=== PATIENT | female | born 1945 | race Caucasian/White ===

== ENCOUNTER → 2020-05-01 10:33 | Outpatient (CLI) | payer MEDICARE, BC, SELFPAY ==
[2020-05-01 12:50] LABS: Coronavirus 19 IgG Antibody Positive (Negative); Coronavirus 19 IgM Antibody Negative (Negative)
== END ==
PROVIDERS: Visit Provider Internal Medicine Gastroenterology
DX: Z01.818 Encounter for other preprocedural examination (principal); Z20.822 Contact with and (suspected) exposure to COVID-19; Z13.810 Encounter for screening for upper gastrointestinal disorder
CPT/HCPCS: 36415; 86328

== ENCOUNTER 2020-05-03 06:59 | Day surgery (SDC) | payer MEDICARE, BC, SELFPAY ==
[2020-05-03 07:57] VITALS: BP 132/83; PULSE 59; RESP 18; TEMP 36.3; O2SAT 97
[2020-05-03 08:14] LABS: POC Glucose,Bedside 84 (70-110)
[2020-05-03 08:35] VITALS: O2SAT 97
--- NOTE | 2020-05-03 08:50 | HMH.PROC ---
[facility] Procedure Note Procedure Note:: Upper Endoscopy Procedure Report: Esophagogastroduodenoscopy with cold biopsies and TTS balloon dilation Endoscopost: Jacinto Mcallister II, MD Referring Physician: Shanell Smith DO Date of Procedure: May 03, 2020 Equipment: Olympus GIF 190 standard upper endoscope Sedation: MAC sedation Indications: Mrs. Emerson is a 74-year-old female with chronic recurrent dysphagia. The patient has had reflux esophagitis. Her EGD in June 2015 showed grade C reflux esophagitis with distal peptic stricture. The patient's EGD in February 2016 showed healing of the reflux esophagitis but stricturing and this was dilated to 18 mm. The patient has had recurrent dysphagia to primarily breads and meats (solids). She has had some heartburn and reflux which she controls with Rolaids. She had been on omeprazole. She reports no epigastric discomfort, indigestion, bloating or belching. She has a prior history of food impactions. She did have a prior Reema fundoplication by Dr. Liang Gutierrez in July 2013. The patient also has had robotic assisted sigmoid colectomy and hysterectomy for complicated diverticulitis. Procedure: Prior to the procedure, a history and physical exam was performed, and patient's medications and allergies were reviewed. The risks, benefits and alternatives of the sedation and procedure were discussed with the patient. All questions were answered and informed consent was obtained. The patient was brought to the procedure room. Patient identification and proposed procedure were verified by the physician and the nurse. The patient was placed in a left lateral decubitus position and the scope was passed under direct vision. Throughout the procedure, the patient's blood pressure, pulse, and oxygen saturations were monitored continuously. The upper GI endoscopy was accomplished without difficulty. The patient tolerated the procedure well. Findings: The scope was passed directly into the upper esophagus and advanced to the third portion of the duodenum. The post bulbar duodenum and duodenal bulb were normal with normal mucosa and conniventes. The scope was withdrawn through a normal duodenal bulb and pylorus into the stomach. There was bile reflux with linear reactive gastropathy of the antrum and body. The remainder of the antrum, body and fundus of the stomach were grossly normal. Upon retroflexion there was a recurrent 2 to 3 cm hiatal hernia with evidence of prior fundoplication. 2 biopsies were taken in the antrum and along the lesser curvature for histology to rule out gastritis and/or H pylori. The scope was then withdrawn into the esophagus. There was evidence of grade C?D (LA classification) reflux esophagitis with distal esophageal peptic stricture. There was also some chronic fibrosis (scarring) with distal pseudodiverticulum. Biopsies were obtained from the GE junction to rule out short segment King's esophagus. The distal esophagus was dilated gently up to 18 mm with a TTS hydrostatic balloon. The remainder of the esophageal mucosa was normal. Impression: 1. Grade C?D reflux esophagitis (LA classification) with distal esophageal peptic stricture (dilated to 18 mm) and some chronic GERD changes with small recurrent 2 to 3 cm hiatal hernia 2. Bile reflux with mild linear reactive gastropathy Plan: The patient does have complicated GERD and should remain on PPI therapy (omeprazole) long-term. We will discuss additional treatment options. I will follow-up the biopsies.
[2020-05-03 08:53] VITALS: BP 117/49; PULSE 63; RESP 12; TEMP 36.4; O2SAT 99
[2020-05-03 09:03] VITALS: BP 140/98; PULSE 71; RESP 16; O2SAT 96
[2020-05-03 09:13] VITALS: BP 140/73; PULSE 69; RESP 16; O2SAT 98
[2020-05-03 09:23] VITALS: BP 143/76; PULSE 62; RESP 16; TEMP 36.4; O2SAT 98
--- NOTE | 2020-05-03 15:14 | P.PN_ITS ---
[facility] Anesthesia Checklist - Patient Identification Patient Identification: Arm Band - Structural Data Admitted From: Home Planned Operative Procedure/s: EGD Consent for Planned Operative Procedure(s) Verified: Yes - Airway Assessment C-Spine Mobility Assessed: Yes TMJ Mobility Assessed: Yes Dentition: Dentures-good fit - Neurological Assessment Level of Consciousness: Awake Hx Seizures: No Numbness or tingling in extremities: No - Anesthesia Plan Anesthesia Risk discussed: Yes Anesthesia Plan: Verified ASA Class: II Anesthesia Type: MAC [facility] History I have reviewed the patient's past medical history: Yes Medical History: Reports:: Diabetes Mellitus Type 2 Denies:: Cancer, Diabetes Mellitus Type 1, MRSA, Seizures *Have you ever received a pneumonia vaccine?: Yes *Have you received a flu vaccine this season?: Yes Anesthesia experience/problems:: PONV Laterality Cases: Left: Total Knee Replacement Amputation: No Fractures: No - *Social History Last grade of school completed: High school graduate Alcohol Intake: never Substance Use Type: denies use *Occupational Status:: other *Travel in the last 8 weeks: None Family Hx:: Unable to obtain
== END 2020-05-03 09:28 | disposition home or self-care (01) ==
LOC: OUTP 07:03
PROVIDERS: PCP Family Medicine; Visit Provider Internal Medicine Gastroenterology
PROC: 0DJ08ZZ Inspection of Upper Intestinal Tract, Via Natural or Artificial Opening Endoscopic (ICD-10-PCS; CPT 43235; principal; 2020-05-03 08:30)
DX: K44.9 Diaphragmatic hernia without obstruction or gangrene (principal); K21.9 Gastro-esophageal reflux disease without esophagitis; K22.2 Esophageal obstruction; K31.9 Disease of stomach and duodenum, unspecified; Z87.19 Personal history of other diseases of the digestive system; E11.9 Type 2 diabetes mellitus without complications; Z96.652 Presence of left artificial knee joint; Z88.5 Allergy status to narcotic agent; Z79.899 Other long term (current) drug therapy
CPT/HCPCS: 43239; 43249; 82962; 88305; C1726

== ENCOUNTER → 2020-06-30 08:28 | Outpatient (CLI) | payer MEDICARE, BC, SELFPAY | PROVIDERS: Visit Provider Internal Medicine Gastroenterology | DX: Z01.812 Encounter for preprocedural laboratory examination (principal); Z20.822 Contact with and (suspected) exposure to COVID-19; Z13.810 Encounter for screening for upper gastrointestinal disorder; R13.10 Dysphagia, unspecified | CPT/HCPCS: U0003 ==

== ENCOUNTER 2020-07-02 09:47 | Day surgery (SDC) | payer MEDICARE, BC, SELFPAY ==
[2020-06-29 10:00] VITALS: BMI 22.9
[2020-07-02 10:04] VITALS: BP 121/47; PULSE 62; RESP 18; TEMP 36.6; O2SAT 92
--- NOTE | 2020-07-02 11:40 | P.PCN_ITS ---
[facility] Procedure Note Procedure Note:: Upper Endoscopy Procedure Report: Esophagogastroduodenoscopy with TTS balloon dilation Endoscopost: Jacinto Mcallister II, MD Referring Physician: Shanell Canales DO Date of Procedure: July 02, 2020 Equipment: Olympus GIF 190 standard upper endoscope Sedation: MAC sedation Indications: Mrs. Emerson is a 74-year-old female with recurrent chronic dysphagia. In the past she has had marked reflux esophagitis with peptic stricture. The patient did have a prior Reema fundoplication (Dr. Liang Gutierrez) in July 2013. She does have a history of complicated diverticulitis requiring robotic hand- assisted sigmoid colectomy and hysterectomy. The patient did have an EGD with dilation by me on May 03, 2020. I did dilate the esophagus up to 18 mm. There was grade C?D reflux esophagitis. I did recommend that she return on PPI therapy. The patient is better but still has dysphagia to solid foods (especially breads and meats). Procedure: Prior to the procedure, a history and physical exam was performed, and patient's medications and allergies were reviewed. The risks, benefits and alternatives of the sedation and procedure were discussed with the patient. All questions were answered and informed consent was obtained. The patient was brought to the procedure room. Patient identification and proposed procedure were verified by the physician and the nurse. The patient was placed in a left lateral decubitus position and the scope was passed under direct vision. Throughout the procedure, the patient's blood pressure, pulse, and oxygen saturations were monitored continuously. The upper GI endoscopy was accomplished without difficulty. The patient tolerated the procedure well. Findings: The scope was passed directly into the upper esophagus and advanced to the third portion of the duodenum. The post bulbar duodenum and duodenal bulb were normal with normal mucosa and conniventes. The scope was withdrawn through a normal duodenal bulb and pylorus into the stomach. There was bile reflux with mild linear reactive gastropathy of the antrum and body of the stomach. The remainder of the fundus of the stomach were grossly normal. Upon retroflexion there was a recurrent 2 to 3 cm hiatal hernia with evidence of prior Reema fundoplication. The scope was then withdrawn into the esophagus. There was no evidence of reflux esophagitis. There was fibrosis distally with stricturing. This was dilated from 18 to 20 mm with a TTS hydrostatic balloon. There was shattering of the stricture/stenosis that appeared to be fibrotic. There were fibrotic changes in the lower esophagus but there was no evidence of King's or reflux esophagitis. The remainder of the mid and proximal esophagus and esophageal mucosa was normal. Impression: 1. Distal esophageal fibrotic stricture status post dilation to 20 mm 2. Nonerosive GERD with distal fibrosis but no King's or reflux esophagitis 3. Small recurrent 2 to 3 cm hiatal hernia 4. Mild reactive gastropathy of antrum/body with bile reflux Plan: The patient should have clinical improvement with the dilation. I would continue PPI therapy on a long-term daily maintenance basis for complicated GERD.
[2020-07-02 11:43] VITALS: BP 110/61; PULSE 62; RESP 18; TEMP 36.1; O2SAT 97
[2020-07-02 11:53] VITALS: BP 104/54; PULSE 65; RESP 18; O2SAT 97
[2020-07-02 12:03] VITALS: BP 128/85; PULSE 62; RESP 18; O2SAT 97
[2020-07-02 12:13] VITALS: BP 122/81; PULSE 58; RESP 18; O2SAT 97
[2020-07-02 12:30] VITALS: BP 118/67; PULSE 59; RESP 18; TEMP 36.7; O2SAT 97
--- NOTE | 2020-07-02 17:38 | HMH.ANESCL ---
[facility] Anesthesia Checklist - Patient Identification Patient Identification: Arm Band - Structural Data Admitted From: Home Planned Operative Procedure/s: EGD Consent for Planned Operative Procedure(s) Verified: Yes Verified Documents: Surgical Consent, History and Physical - NPO Status Verified Time NPO: 00:00 - Airway Assessment C-Spine Mobility Assessed: Yes TMJ Mobility Assessed: Yes Dentition: Good Dentition - Neurological Assessment Level of Consciousness: Awake, Alert - Anesthesia Plan Anesthesia Risk discussed: Yes Anesthesia Plan: Verified ASA Class: III Anesthesia Type: MAC [facility] History Medical History: Reports:: Diabetes Mellitus Type 2 Denies:: Cancer, Diabetes Mellitus Type 1, Internal Pacemaker, MRSA, Seizures *Have you ever received a pneumonia vaccine?: Yes *Have you received a flu vaccine this season?: Yes Anesthesia experience/problems:: None Laterality Cases: Left: Total Knee Replacement Other Surgeries: No: Pacemaker Amputation: No Fractures: No - *Social History Last grade of school completed: GED Smoking Status: Unknown if ever smoked Alcohol Intake: never Substance Use Type: denies use *Occupational Status:: retired Housing: house *Travel in the last 8 weeks: None Family Hx:: No significant family history
[2020-07-03 11:34] LABS: POC Glucose,Bedside 80 (70-110)
== END 2020-07-02 12:30 | disposition home or self-care (01) ==
LOC: OUTP 09:48
PROVIDERS: PCP Family Medicine; Visit Provider Internal Medicine Gastroenterology
PROC: 0DJ08ZZ Inspection of Upper Intestinal Tract, Via Natural or Artificial Opening Endoscopic (ICD-10-PCS; CPT 43235; principal; 2020-07-02 11:00)
DX: K22.2 Esophageal obstruction (principal); K21.9 Gastro-esophageal reflux disease without esophagitis; K22.8 Other specified diseases of esophagus; K44.9 Diaphragmatic hernia without obstruction or gangrene; K31.9 Disease of stomach and duodenum, unspecified; Z87.19 Personal history of other diseases of the digestive system; E11.9 Type 2 diabetes mellitus without complications; F32.9 Major depressive disorder, single episode, unspecified; E03.9 Hypothyroidism, unspecified; Z88.5 Allergy status to narcotic agent; Z79.899 Other long term (current) drug therapy
CPT/HCPCS: 43249; 82962; C1726

== ENCOUNTER → 2020-07-22 14:14 | Outpatient (CLI) | payer MEDICARE, BC, SELFPAY ==
[2020-07-22 15:00] LABS: Basophils % 0.8 % (0.1-2.0); Eosinophils # 0.1 K/mm3 (0.0-0.4); Eosinophils % 1.2 % (0.1-12.0); Hematocrit 35.8 % (37.0-47.0); Hemoglobin 11.7 g/dL (12.2-16.2); Lymphocytes # 1.6 K/mm3 (0.7-4.5); Lymphocytes % 37.4 % (10-50); Mean Corpuscular HGB Conc 32.6 g/dL (31.8-35.4); Mean Corpuscular Hemoglobin 28.8 pg (27.0-31.2); Mean Corpuscular Volume 88.2 fl (81-99); Mean Platelet Volume 7.4 fl (7.4-10.4); Monocytes # 0.3 K/mm3 (0.1-1.0); Monocytes % 5.9 % (1.7-9.3); Neutrophils # 2.3 K/mm3 (1.8-7.8); Neutrophils % 54.6 % (37.0-80.0); Platelet Count 158 K/mm3 (142-424); Red Blood Count 4.06 M/mm3 (4.20-5.40); Red Cell Distribution Width 12.9 % (11.5-17.5); White Blood Count 4.2 K/mm3 (4.8-10.8)
[2020-07-22 15:12] LABS: Alanine Aminotransferase 15 U/L (12-78); Albumin Level 4.1 g/dl (3.5-5.0); Albumin/Globulin Ratio 1.9 (1.1-1.8); Alkaline Phosphatase 86 U/L (38-126); Amylase 69 U/L (30-110); Anion Gap 11.2 mEq/L (5-15); Aspartate Amino Transferase 25 U/L (14-36); Bilirubin,Total 0.5 mg/dl (0.2-1.3); Blood Urea Nitrogen 20 mg/dl (7-17); Calcium 9.3 mg/dl (8.4-10.2); Carbon Dioxide 28 mmol/L (22.0-30.0); Chloride 105 mmol/L (98-107); Estimated Glomerular Filt Rate 82 ml/min (>60); GFR (African American) 99 ML/MIN (>60); Globulin 2.2 g/dL (1.3-3.2); Glucose 107 mg/dl (74-100); Lipase 109 U/L (23-300); Potassium 4.2 mmoL/L (3.5-5.1); Sodium 140 mmol/L (136-145); Total Protein,Serum 6.3 g/dl (6.3-8.2)
== END ==
PROVIDERS: Visit Provider Internal Medicine Gastroenterology
DX: R10.30 Lower abdominal pain, unspecified (principal)
CPT/HCPCS: 36415; 80053; 82150; 83690; 85025

== ENCOUNTER → 2020-07-27 08:35 | Outpatient (CLI) | payer MEDICARE, BC, SELFPAY ==
--- NOTE | 2020-07-27 08:39 | CT_ITS ---
PROCEDURE: CT ABDOMEN PELVIS W CON CLINICAL INDICATION: LOWER ABD PAIN COMPARISON: No exams were available for comparison TECHNIQUE: IV Contrast: 75ML Isovue 370 Oral contrast given prior to scan. Axial images obtained with sagittal and coronal reformats. All CT scans at the facility use one or more dose reduction, viz: automated exposure control, ma/kV adjustment per patient size (including targeted exams where dose is matched to indication, i.e. head), or iterative reconstruction technique. FINDINGS: There is mild scar versus atelectasis in the lung bases with small calcified granuloma in the left base. Mild diffuse fatty infiltration of the liver with small area of more focal fatty liver no the falciform ligament. Few tiny calcifications in the spleen. Spleen is otherwise normal. Gallbladder is surgically absent. Pancreas adrenal glands and kidneys are normal. No upper abdominal lymphadenopathy. Mild calcification of the abdominal aorta without aneurysm. Moderate amount of stool in the colon. No distended large or small bowel or bowel wall thickening. A few surgical clips noted in the pelvis. Bladder is normal. Appendix is normal. Uterus is surgically absent. No enlarged adnexal mass. There are no inguinal or femoral hernias. No enlarged iliac or inguinal chain lymph nodes. Small to moderate retrocardiac hiatal hernia incidentally noted. Moderate diffuse degenerative changes of the lumbar spine and some degenerative change of both hip joints noted. No acute bony abnormality. IMPRESSION: No acute abnormality of the abdomen or pelvis. No free intraperitoneal air or fluid. Prior cholecystectomy and hysterectomy. A few surgical clips in the pelvis. Normal appendix. Mild diffuse fatty infiltration of the liver with more focal area of fatty liver in falciform ligament region. Small to moderate retrocardiac hiatal hernia. Dictated by: Mp Waldrop 07/27/2020 10:54 Mp Waldrop in OV 07/27/2020 10:54
== END ==
PROVIDERS: PCP Family Medicine; Visit Provider Nurse Practitioner Family
DX: R10.30 Lower abdominal pain, unspecified (principal)
CPT/HCPCS: 74177; Q9967

== ENCOUNTER → 2020-08-02 14:02 | Outpatient (POV) | payer MEDICARE, BC, SELFPAY | PROVIDERS: Visit Provider Nurse Practitioner Family | DX: Z00.00 Encounter for general adult medical examination without abnormal findings (principal) ==

== ENCOUNTER → 2020-08-06 08:36 | Outpatient (CLI) | payer MEDICARE, BC, SELFPAY | PROVIDERS: Visit Provider Internal Medicine Gastroenterology | DX: Z01.812 Encounter for preprocedural laboratory examination (principal); Z20.822 Contact with and (suspected) exposure to COVID-19; Z12.11 Encounter for screening for malignant neoplasm of colon | CPT/HCPCS: U0003 ==

== ENCOUNTER 2020-08-09 11:48 | Day surgery (SDC) | payer MEDICARE, BC, SELFPAY ==
[2020-08-09] VITALS (7 sets, daily range): BP systolic 99–137; BP diastolic 43–71; PULSE 56–76; RESP 16–18; TEMP 36.3–36.7; O2SAT 96–100; BMI 22.5
[2020-08-09 12:37] LABS: POC Glucose,Bedside 63 (70-110)
--- NOTE | 2020-08-09 13:32 | P.PCN_ITS ---
[facility] Procedure Note Procedure Note:: Colonoscopy Procedure Report: Colonoscopy with cold snare polypectomy Endoscopist: Jacinto Mcallister II, MD Referring physician: Shanell Smith DO ([facility]) Date of Procedure: August 09, 2020 Equipment: Olympus 190 variable stiffness pediatric colonoscope Sedation: MAC sedation Indication: Mrs. Emerson is a 74-year-old female with ongoing abdominal pain and discomfort especially in the lower abdomen. This can sometimes be more excruciating. She was concerned about pancreatitis. Her CAT scan showed a moderate amount of stool in the colon. She does have moderate gassiness and bloating. She still has very thin stools with excessive gas and incomplete defecation. Her last colonoscopy was January 2014 at which time she had 6 colon polyps (tubular adenoma x3/hyperplastic polyps x2/inflammatory polyp x1) which were removed. She reports no family history of colon cancer. She does have a history of extensive intra-abdominal adhesions. She did have prior colon surgery. Procedure: Prior to the procedure, a history and physical exam was performed, and patient's medications and allergies were reviewed. The risks, benefits and alternatives of the sedation and procedure were discussed with the patient. All questions were answered and informed consent was obtained. The patient was brought to the procedure room. Patient identification and proposed procedure were verified by the physician and the nurse. The patient was placed in a left lateral decubitus position and the scope was passed under direct vision. Throughout the procedure, the patient's blood pressure, pulse, and oxygen saturations were monitored continuously. The colonoscopy was accomplished without difficulty. The patient tolerated the procedure well. Findings: On digital rectal examination there was normal rectal tone. There were no external hemorrhoids. The colonoscope was introduced through the anal canal to the rectum and advanced to the cecum. The ileocecal valve and appendiceal orifice were identified. The scope was advanced a short distance into the ileum which appeared grossly normal. The scope was then withdrawn into the colon. The cecum, ascending and transverse colon and mucosa were grossly normal. There was a diminutive 2 to 3 mm polyp in the transverse colon removed via cold snare polypectomy. There were scattered diverticuli throughout the colon but more predominantly in the remaining descending colon. There was an anastomotic (end to side) with prior LAR (low anterior resection). The rectum itself was normal. Upon retroflexion within the rectum there were grade 1-2 internal hemorrhoids. The preparation was excellent throughout with [place] Preparation Score of 9. The cecal time was 12 minutes. Impression: 1. Diminutive transverse colon polyp (2 to 3 mm) 2. Pandiverticulosis 3. Prior LAR with normal anastomosis 4. Grade 1-2 internal hemorrhoids Plan: I would encourage continued dietary measures and bulk fiber. We will discuss additional treatment options. I am not convinced that she will require any further preventive colonoscopy.
== END 2020-08-09 14:19 | disposition home or self-care (01) ==
LOC: OUTP 11:51
PROVIDERS: PCP Family Medicine; Visit Provider Internal Medicine Gastroenterology
PROC: 0DJD8ZZ Inspection of Lower Intestinal Tract, Via Natural or Artificial Opening Endoscopic (ICD-10-PCS; CPT 45378; principal; 2020-08-09 13:30)
DX: Z86.010 Personal history of colon polyps (principal); K63.5 Polyp of colon; K57.30 Diverticulosis of large intestine without perforation or abscess without bleeding; K64.0 First degree hemorrhoids; Z90.49 Acquired absence of other specified parts of digestive tract; K21.9 Gastro-esophageal reflux disease without esophagitis; E03.9 Hypothyroidism, unspecified; E11.9 Type 2 diabetes mellitus without complications; Z88.5 Allergy status to narcotic agent; Z88.2 Allergy status to sulfonamides; Z79.899 Other long term (current) drug therapy
CPT/HCPCS: 45385; 82962; 88305

== ENCOUNTER 2020-09-04 09:31 | Emergency (ER) | payer MEDICARE, BC, SELFPAY ==
[2020-09-04 09:47] VITALS: BP 135/64; PULSE 71; RESP 18; TEMP 36.9; O2SAT 96; BMI 22.4
--- NOTE | 2020-09-04 09:56 | HMH.EDUTC ---
[facility] [place] Clinical Impression: Acute bronchitis Qualifiers: Bronchitis organism: unspecified organism Qualified Code(s): J20.9 - Acute bronchitis, unspecified Disposition: Home, Self-Care Condition on Discharge: Good Instructions: DI for Acute Bronchitis Additional Instructions: Start antibiotic today. Be sure to complete entire prescription even if feeling better Tylenol and ibuprofen as needed for pain or fever Humidifier/vaporizer/hot steamy shower Follow-up with primary care Sunday. Follow-up immediately in the ER of the [facility] for new or worsening symptoms or no noticeable improvement over the next 48-72 hours. Stop smoking monitor glucose close for a few days due to steroids if symptoms worsen return or be seen in ed covid swab was sent to lab, call later today for results. self isolate until test results are known to be negative Prescriptions: Benzonatate [Tessalon Perle 100mg Cap*] 100 mg PO BID PRN #14 cap PRN Reason: Cough Transmission Status: Pending to [id number] Azithromycin [Zithromax 250mg tab] 250 mg PO DIRECTED #6 tab Transmission Status: Pending to [id number] Referrals: Shanell Smith [Primary Care Provider] - Time of Disposition: 10:05 Medical Decision Making - Grady Inquiry Pt receiving controlled substance: No Vital Signs: 09/04/20 09:47 Temperature 98.4 F Temperature Source Oral Pulse Rate [Apical] 71 Respiratory Rate 18 Blood Pressure [Right Arm] 135/64 Blood Pressure Mean [Right Arm] 87 Blood Pressure Source [Right Arm] Automatic Cuff Blood Pressure Position [Right Arm] Sitting 02 Sat by Pulse Oximetry 96 Oxygen Delivery Method Room Air Orders (Tests/Meds): ED MEDICATIONS Discontinued Medications Generic Name Dose Route Start Last Admin Trade Name Freq PRN Reason Stop Dose Admin Ceftriaxone Sodium 1 gm 09/04/20 09:55 Ceftriaxone 1gm Vial IM 09/04/20 09:56 ONCE ONE Protocol Lidocaine HCl 0 ml 09/04/20 09:55 Lidocaine 1% 5ml Pf Vial IM 09/04/20 09:56 ONCE ONE ORDERS Category Date Time Status Covid-19 Nasal PCR ([facility]) Routine Lab 09/04/20 09:53 Ordered [facility] HPI - General Chief complaint: Urgent [facility] Stated complaint: congestion,runny nose Time Seen by Provider: 09/04/20 09:56 Mode of Arrival: Ambulatory Source of Information: Patient Limitations: No Limitations Description of Symptoms (Recalled from Triage Doc. by RN): cough, runny nose, congestion HEENT Symptoms (Recalled from RN notes): Yes Resp Symptoms (Recalled from RN notes): Yes Skin Symptoms (Recalled from RN notes): No MS Symptoms (Recalled from RN notes): No Functional Status (Recalled from RN notes): na - History of Present Illness Provider Complaint: 75 yr old female presents for coughing up yellow/green sputum,soa,sinus pressure, fever,horseness, and tiredness since . pt states the soa is worsening, states coughing hurts in her back and last pm she had to sleep up on pillows to breath. - Related Data Home Medications Medication Instructions Recorded Confirmed Levothyroxine Sodium [Synthroid 125 mcg PO DAILY 06/15/18 08/09/20 150mcg (0.15mg) tablet] Omeprazole [Omeprazole 40mg 40 mg PO DAILY 06/28/20 08/09/20 Capsule] methocarbamoL [Methocarbamol] 750 mg PO QID 06/28/20 08/09/20 Previous Rx's Medication Instructions Recorded Azithromycin [Zithromax 250mg 250 mg PO DIRECTED #6 tab 09/04/20 tab] Benzonatate [Tessalon Perle 100mg 100 mg PO BID PRN #14 cap 09/04/20 Cap*] Allergies Allergy/AdvReac Type Severity Reaction Status Date / Time meperidine [From DEMEROL] Allergy Severe S-ANAPHYLAX Verified 08/09/20 12:14 IS morphine [MORPHINE] Allergy Severe S-ANAPHYLAX Verified 08/09/20 12:14 IS Sulfa (Sulfonamide Allergy Intermediate Hives Verified 08/09/20 12:14 Antibiotics) - Worker's Comp Is this a Worker's Comp case?: No H History
[2020-09-04 10:05] VITALS: BP 135/64; PULSE 71; RESP 18; TEMP 36.9; O2SAT 96
== END 2020-09-04 10:12 | disposition home or self-care (01) ==
PROVIDERS: Emergency Provider Nurse Practitioner Family; PCP Family Medicine
DX: J20.9 Acute bronchitis, unspecified (principal); E11.9 Type 2 diabetes mellitus without complications; Z88.2 Allergy status to sulfonamides; Z88.5 Allergy status to narcotic agent; Z20.822 Contact with and (suspected) exposure to COVID-19
CPT/HCPCS: G0463; 99202; U0003

== ENCOUNTER 2021-11-28 17:46 | Emergency (ER) | payer MEDICARE, BC, SELFPAY ==
--- NOTE | 2021-11-28 17:57 | EXP.UTC ---
Discharge Plan Disposition Patient Disposition: Home, Self-Care Condition: Good Prescriptions Prescriptions: No Action omeprazole 40 MG capsule,delayed release(DR/EC) 40 mg PO DAILY methocarbamol 750 MG tablet 750 mg PO QID azithromycin 250 MG tablet 250 mg PO DIRECTED Qty: 6 0RF Rx Instructions: Take two (2) tablets on day #1, then one (1) tablet day #2 thru #5 benzonatate 100 MG capsule 100 mg PO BID PRN (Reason: Cough) Qty: 14 0RF levothyroxine 150 MCG tablet 125 mcg PO DAILY Referrals Follow up/Referrals: Shanell Smith [Primary Care Provider] - See instructions Anselmo Tse MD [Staff Physician] - See instructions Activity Restrictions/Add. Instructions Additional Instructions/Restrictions: Rest the extremity, apply ice for 15 minutes as tolerated three or four times per day, Elevate the extremity as tolerated while you are resting. Take ibuprofen for pain if you can take this. If not, then take tylenol. Follow up with Dr. Tse (orthopedics). Sometimes there can be fractures that don't show up well on the first set of x-rays. I put in a referral but you need to call his office and schedule an appointment. Follow up with your regular doctor. GO TO THE ER FOR ANY WORSENING SYMPTOMS Clinical Impressions Clinical Impression: Contusion of left wrist, Crushing injury of left wrist Instructions Patient Instructions: DI for Crush Injury Discharge ED Provider: Mp Keller [facility] General Stated complaint: ao 11/28, left arm pain Time Seen by Provider: 11/28/21 18:46 History of Present Illness Provider Complaint: She states that about 30 minutes ago, her car door closed and caught her left wrist in the door. She has had left wrist and hand pain since then. Related Data Home Medications Medication Instructions Recorded Confirmed levothyroxine 150 mcg tablet 125 mcg PO DAILY THYROID 06/15/18 08/09/20 methocarbamol 750 mg tablet 750 mg PO QID Pain 06/28/20 08/09/20 omeprazole 40 mg capsule,delayed 40 mg PO DAILY stomach 06/28/20 08/09/20 release Previous Rx's Medication Instructions Recorded azithromycin 250 mg tablet 250 mg PO DIRECTED #6 tabs 09/04/20 benzonatate 100 mg capsule 100 mg PO BID PRN Cough #14 caps 09/04/20 Allergies Allergy/AdvReac Type Severity Reaction Status Date / Time meperidine [From DEMEROL] Allergy Severe S-ANAPHYLAX Verified 11/28/21 18:49 IS morphine [MORPHINE] Allergy Severe S-ANAPHYLAX Verified 11/28/21 18:49 IS Sulfa (Sulfonamide Allergy Intermediate Hives Verified 11/28/21 18:49 Antibiotics) [facility] Social History Smoking Status: Never smoker second hand exposure: Yes alcohol intake: never substance use type: denies use current occupational status: retired Travel in the last 8 weeks: None household members: none housing: house caffeine: Yes ROS Obtained: Yes All systems reviewed & no additional complaints except as documented Constitutional Constitutional: Denies chills and Denies fever(s) Integumentary/Breasts Skin/Breast: Denies redness, Denies rash and Denies wounds Neurologic Neurologic: Denies paresthesias Physical Exam General General appearance: alert and in no apparent distress Head Head exam: atraumatic, normocephalic and normal inspection Eye Eye exam: Present normal appearance, PERRL and EOMI ENT ENT exam: Present normal exam, normal oropharynx, mucous membranes moist, TM's normal bilaterally and normal external ear exam Neck Neck exam: Present normal inspection, full ROM and trachea midline; Absent meningismus or lymphadenopathy Chest Chest inspection: Present normal inspection and symmetric chest wall rise; Absent tenderness Respiratory Respiratory exam: Present normal lung sounds bilaterally; Absent respiratory distress Cardiovascular Cardiovascular exam: Present regular rate and normal
--- NOTE | 2021-11-28 18:01 | XR_ITS ---
PROCEDURE INFORMATION: Exam: XR Left Wrist Exam date and time: 11/28/2021 6:14 PM Age: 76 years old Clinical indication: Injury or trauma; Other: Slammed car door shut on left wrist. Blunt trauma (contusions or hematomas); Additional info: Slammed in a car door TECHNIQUE: Imaging protocol: Radiologic exam of the Left wrist. Views: 3 or more views. COMPARISON: CR XR HAND LT MIN 3V 11/28/2021 6:11 PM FINDINGS: Bones/joints: Postsurgical changes in the base of the thumb. Prosthesis in place. No hardware complications. No acute fracture or dislocation. Soft tissues: Normal. IMPRESSION: No acute findings.
--- NOTE | 2021-11-28 18:01 | XR_ITS ---
PROCEDURE INFORMATION: Exam: XR Left Hand Exam date and time: 11/28/2021 6:11 PM Age: 76 years old Clinical indication: Injury or trauma; Other: Slammed left hand in car door. Blunt trauma (contusions or hematomas); Prior surgery; Surgery date: 6+ months; Surgery type: Left hand surgery 2 years ago with hardware placed. ; Additional info: Slammed in a car door TECHNIQUE: Imaging protocol: Radiologic exam of the Left hand. Views: 3 or more views. COMPARISON: No relevant prior studies available. FINDINGS: Bones/joints: Postsurgical changes at the base of the thumb. No hardware complications. No acute fracture or dislocation. Soft tissues: Normal. IMPRESSION: No acute findings.
[2021-11-28 18:46] VITALS: BP 98/44; PULSE 53; RESP 18; TEMP 36.7; O2SAT 99; BMI 22.4
[2021-11-28 19:29] VITALS: BP 98/44; PULSE 53; RESP 18; TEMP 36.7
== END 2021-11-28 19:41 | disposition home or self-care (01) ==
PROVIDERS: Emergency Provider Nurse Practitioner Family; PCP Family Medicine
DX: S60.212A Contusion of left wrist, initial encounter; S67.32XA Crushing injury of left wrist, initial encounter; W23.0XXA Caught, crushed, jammed, or pinched between moving objects, initial encounter; Y92.810 Car as the place of occurrence of the external cause
CPT/HCPCS: 29126; 73110; 73130; 99213; G0463

== ENCOUNTER 2024-02-11 10:41 | Outpatient (CLI) | payer MEDICARE, BC, SELFPAY | END 2024-02-11 23:59 | disposition home or self-care (01) | LOC: RT 10:45 | PROVIDERS: PCP Nurse Practitioner Family; Visit Provider Internal Medicine | DX: R00.2 Palpitations (principal); R00.0 Tachycardia, unspecified; R55 Syncope and collapse; R94.31 Abnormal electrocardiogram [ECG] [EKG] | CPT/HCPCS: 93270 ==